=== PATIENT | female | born 1960 | race Caucasian/White ===

== ENCOUNTER → 2019-02-15 | Outpatient (CLI) | payer OTHER ==
--- NOTE | 2019-02-15 16:23 | PCVCIMAG ---
APPROVED REPORT Study performed: 02/15/2019 14:41:07 Exam: Stress Echocardiogram Indication: Dyspnea on exertion, htn, hlp, bradycardia Patient Location: Echo lab Stress Nurse: Shea Andrade RN Status: routine Ht: 5 ft 3 in HR: 45 bpm BP: 140/76 mmHg Rhythm: Bradycardia Procedure The patient underwent an Exercise Stress Test using the Victor Manuel Protocol. Blood pressure, heart rate, and EKG were monitored. An Echocardiogram was performed by painting technician in four stages in quad fashion. At peak stress, four selected images were obtained and placed side by side with resting images for comparison. Stress Test Details Stress Test: Exercise stress testing was performed using a Victor Manuel protocol. HR Resting HR: 43 bpmMax Heart Rate (APMHR): 161 bpm Max HR Achieved: 111 bpmTarget HR (85% APMHR): 136 bpm % of APMHR: 68 Recovery HR: 55 bpm HR response to stress: Normal HR response to stress BP Resting BP: 140/76 mmHg Max BP: 154/70 mmHg Recovery BP: 120/70 mmHg BP response to stress: Normal blood pressure response to stress. ECG Resting ECG: Sinus Bradycardia Stress ECG: Sinus Rhythm ST Change: Normal Maximum ST Deviation: 0 mm Arrhythmia: None Recovery ECG: Sinus Bradycardia Recovery ST Change: Normal Recovery Arrhythmia: None Clinical Reason for Termination: Maximal effort, Dyspnea Stress Symptoms: Dyspnea Exercise duration: 10 min 30 sec Highest Stage Achieved: Stage 4: 4.2 mph at 16% grade. Exercise capacity: 13.4 METs Overall Exercise Capacity for Age: Good Scale: Active Angina Score: None Stress ECG Conclusion Non-diagnostic exercise stress due to failure to attain target HR. Clinical: Non-ischemic ECG: Non-ischemic Luna Treadmill Score is 10.0 which is Low risk. Pre-Stress Echo The resting Echocardiogram showed normal left ventricular contractility with an estimated Ejection Fraction of about >55%. The resting echocardiogram demonstrated normal wall motion in all wall segments. Post-Stress Echo The stress Echocardiogram showed left ventricular contractility with an estimated Ejection Fraction of about 65%. Compared to rest, there were no stress-induced wall motion abnormalities. Clinical No clinical or ECG evidence for ischemia. Conclusion Clinical Response: Non-ischemic Exercise Capacity: Superior Stress ECG Response: Equivocal Stress Echo Images: Non-ischemic Non-diagnostic study due to inability of the patient to achieve 85% of maximal HR. Mild mitral regurgitation present. Aneurysmal atrial septum without PFO by color doppler. Trace pericardial effusion Consider symptomatic chronotropic incompetence Suggest myocardial perfusion imaging. Other Information Study Quality: Adequate <Conclusion> Non-diagnostic study due to inability of the patient to achieve 85% of maximal HR. Mild mitral regurgitation present. Aneurysmal atrial septum without PFO by color doppler. Trace pericardial effusion Consider symptomatic chronotropic incompetence Suggest myocardial perfusion imaging.
== END | disposition home or self-care (01) ==
LOC: PCVCIMAG 14:19
PROVIDERS: ATTEND Internal Medicine
DX: I34.0 Nonrheumatic mitral (valve) insufficiency (principal); I10 Essential (primary) hypertension
CPT/HCPCS: 93325; 93351

== ENCOUNTER → 2019-03-07 | Outpatient (CLI) | payer OTHER ==
[~2019-03-07] MED LIST: AMINOPHYLLINE 250 MG/10 ML VIAL. ONE; IV NORMAL SALINE 1000ML BAG 1,000 ML ONE; REGADENOSON 0.4 MG/5 ML DISP.SYRIN. IV ONE
--- NOTE | 2019-03-07 15:07 | PCVCIMAG ---
APPROVED REPORT Imaging Protocol: Rest Tc-99m/Stress Tc-99m 1 day Study performed: 03/07/2019 09:17:58 Indication: Dyspnea with exertion, Fatigue, Sub-maximal SE Patient Location: Out-Patient Stress Nurse: Nichol Reinoso RN, Shea Andrade RN NE Tech:TORSTEN Lane Ht: 5 ft 3 in Wt: 153 lbs BSA: 1.73 m2 HR: 36 bpm BP: 128/60 mmHg BMI: 27.09 Rhythm: Marked Sinus Bradycardia with T wave abnormalities Medical History Medical History: HTN, Hyperlipidemia, Current Smoker Medications: Lisinopril, Crestor Allergies: Codeine Cardiac Risk Factors: Age Pretest Chest Pain Characteristics: No chest pain Exercise History: Physically active Resting Data Rest SPECT myocardial perfusion imaging was performed in supine position 45 minutes following the intravenous injection of 9.6 mCi of Tc-99m Sestamibi. Time of rest injection: 0840 Date: 03/07/2019 Administration Route: IV Administration Site: Right AC Pharmacologic Stress Pharmacologic stress test was performed by injecting Regadenoson 0.4 mg IV push over 10-15 seconds immediately followed by the intravenous injection of 34.2 mCi of Tc-99m Sestamibi. Time of stress injection: 1030 Date: 03/07/2019 Administration Route: IV Administration Site: Right AC Gated Stress SPECT was performed 45 minutes after stress injection. The images were gated to evaluate regional wall motion and calculate left ventricular ejection fraction. Stress Test Details Stress Test: Pharmacologic stress testing performed using 0.4 mg of regadenoson per 5 mL given IV over 10 seconds. Reason for pharmacologic stress test: physical limitation, sub-maximal SE. Reversal agent Aminophyline 100 mg, given intravenously for hypotension. HRMax Heart Rate (APMHR): 161 bpm Resting HR: 36 bpmTarget HR (85% APMHR): 136 bpm Max HR Achieved: 58 bpm % of APMHR: 36 Recovery HR: 45 bpm BP Resting BP: 128/60 mmHg Max BP: 90/45 mmHg Recovery BP: 131/63 mmHg ECG Resting ECG: Marked Sinus Bradycardia with T wave abnormalities Stress ECG: Sinus Bradycardia with T wave abnormalities ST Change: Non-ischemic Recovery ECG: Sinus Bradycardia with T wave abnormalities Clinical Reason for Termination: Completed protocol Stress Symptoms: Dyspnea, Nausea, Chest pain, Jaw pain, Chest heaviness Exercise duration: min 55 sec Symptoms resolved during recovery with aminophylline. Nurse Comments Pt attempted to do 1 mph walk for testing. Became breathless and lightheaded 1 min 14 secs into walk. She was then changed to a sitting Lexiscan. Pt was given Aminophyline and IV fluids 3 minutes post Lexiscan. Study Quality Study: Good Study Data Post stress, the left ventricular ejection was 73%.. SSS: 8 SRS: 0 SDS: 8 TID = 0.89. Perfusion There is a medium area of moderately reduced uptake in the mid and apical segment of the anteroseptal wall which is seen on the stress images and normalizes on the resting images. This area thickens and moves normally and is most consistent with ischemia. Wall Motion Normal left ventricular wall motion. Nuclear Conclusion ECG Findings: negative for ischemia Clinical Findings: non-diagnostic Nuclear Findings: positive for ischemia Exercise Capacity: not assessed Left Ventricular Function: normal This study reveals reversible defects in the mid to apical anteroseptum and mid to distal inferolateral segments, consistent with ischemia. There is normal global and segmental LV systolic function.
== END | disposition home or self-care (01) ==
LOC: PCVCIMAG 08:23
PROVIDERS: ATTEND Internal Medicine
DX: R00.1 Bradycardia, unspecified (principal); I10 Essential (primary) hypertension; I25.10 Atherosclerotic heart disease of native coronary artery without angina pectoris; Z88.6 Allergy status to analgesic agent
CPT/HCPCS: 78452; 93017; A9500; J0280; J2785; J7030